=== PATIENT | male | born 1980 | race Caucasian/White ===

== ENCOUNTER 2019-09-21 15:32 | Emergency (ER) | payer SELFPAY ==
[2019-09-21] MEDS ORDERED: DEXAMETHASONE INJ 10 MG/ML VIAL IM ONE (15:58)
[2019-09-21] MEDS ORDERED: ACETAMINOPHEN 500 MG TAB PO ONE (15:58)
--- NOTE | 2019-09-21 16:01 | ED.PDOC ---
History of Present Illness - General Chief Complaint: General Stated Complaint: body aches Time Seen by Provider: 09/21/19 15:57 - History of Present Illness Initial Comments: 39 yo M no significant PMH presents to ED, girlfriend at bedside, c/o sore throat body aches cough x 1 day. Admits fever chills denies nausea vomiting diarrhea admits chest wall pain with cough denies sob diaphoresis. No change in diet rest bowel or bladder has no PMD for follow up admits smoking denies drinking admits FH HTN denies FH DM no other c/o today. Allergies/Adverse Reactions: Allergies NO KNOWN ALLERGY Allergy (Verified 11/18/15 10:04) Home Medications: Ambulatory Orders Acetaminophen [Tylenol] 650 mg PO Q6H PRN #30 tab 09/21/19 Amoxicillin & Pot Clavulanate [Augmentin Tab] 875 mg PO BID 10 Days #20 tab 09/21/19 Ibuprofen 600 mg PO Q6H PRN #20 tab 09/21/19 Oseltamivir Capsule [Tamiflu] 75 mg PO BID 5 Days #10 capsule 09/21/19 Prednisone 40 mg PO DAILY 5 Days #10 tab 09/21/19 Review of Systems - Review of Systems Constitutional: States: see HPI EENTM: States: see HPI Respiratory: States: see HPI Cardiology: States: see HPI Gastrointestinal/Abdominal: States: see HPI Genitourinary: States: see HPI Musculoskeletal: States: see HPI Skin: States: see HPI Neurological: States: see HPI Endocrine: States: see HPI Hematologic/Lymphatic: States: see HPI All other Systems: Reviewed and Negative Past Medical History (General) - Patient Medical History Hx Asthma: No Hx Cardiac Disorders: No Hx Congestive Heart Failure: No Hx Hypertension: No Hx Diabetes: No Hx MRSA: Yes - Nasal 2016 - Vaccination History Hx Tetanus, Diphtheria Vaccination: No Hx Influenza Vaccination: No Hx Pneumococcal Vaccination: No - Social History Hx Tobacco Use: Yes Hx Alcohol Use: No Hx Substance Use: Yes - pot, meth (current) Hx Physical Abuse: No Hx Emotional Abuse: No Family Medical History - Family History Father Family History: Unknown Living Status: Unknown Physical Exam - Physical Exam General Appearance: No apparent distress Eye Exam: bilateral normal Ears, Nose, Throat: pharyngeal erythema Neck: non-tender, full range of motion Respiratory: lungs clear, normal breath sounds Cardiovascular/Chest: regular rate, rhythm Gastrointestinal/Abdominal: non tender, soft Rectal Exam: deferred Back Exam: normal inspection Extremity: normal range of motion, non-tender Neurologic: no motor/sensory deficits Skin Exam: normal color Progress - Progress Progress: 09/21/19 16:01 A/P-Pharyngitis, Cough, URI, Myalgia, Fever-tylenol decadron cxr flu and strep swabs reassess, if grossly unremarkable d/c follow up pcp referral tylenol ibuprofen prednisone augmentin for the pharyngitis 09/21/19 16:25 EXAM DESCRIPTION: Chest,2 Views CLINICAL HISTORY: cough COMPARISON: None TECHNIQUE: PA/lateral FINDINGS: The lungs are well expanded and clear. No infiltrates or effusions or masses are noted. The heart is normal in size and shape with no evidence of vascular congestion. The hilton and mediastinum demonstrate normal contours. The bony spine and chest wall is normal for age in appearance. IMPRESSION: Normal chest, two views Electronically signed by: Lam Hussein MD 09/21/2019 4:18 PM COMMUNITY RELATIONS DIRECTOR EXAM DESCRIPTION: Chest,2 Views CLINICAL HISTORY: cough COMPARISON: None TECHNIQUE: PA/lateral FINDINGS: The lungs are well expanded and clear. No inf iltrates or effusions or masses are noted. The heart is normal in size and shape with no evidence of vascular congestion. The hilton and mediastinum demonstrate normal contours. The bony spine and chest wall is normal for age in appearance. IMPRESSION: Normal chest, two views Electronically signed by: Lam Hussein MD 09/21/2019 4:18 PM COMMUNITY RELATIONS DIRECTOR Laboratory Tests 09/21/19 16:05 Group A Strep Rapid Negative 09/21/19 16:29 Positive Influenza A Negative Influenza B Departure - Departure Clinical Impression: Influenza A, Cough, Myalgia Pharyngitis Qualifiers: Pharyngitis/tonsillitis etiology: unspecified etiology Qualified Code(s): J02.9 - Acute pharyngitis, unspecified Fever Qualifiers: Fever type: unspecified Qualified Code(s): R50.9 - Fever, unspecified Upper respiratory infection Qualifiers: URI type: unspecified URI Qualified Code(s): J06.9 - Acute upper respiratory infection, unspecified Time of Disposition: 16:32 Disposition: Discharge to Home or Self Care Condition: Good Departure Forms: ED Discharge - Pt. Copy, Patient Portal Self Enrollment Prescriptions: Acetaminophen [Tylenol] 650 mg PO Q6H PRN #30 tab PRN Reason: Pain Amoxicillin & Pot Clavulanate [Augmentin Tab] 875 mg PO BID 10 Days #20 tab Ibuprofen 600 mg PO Q6H PRN #20 tab PRN Reason: Pain Oseltamivir Capsule [Tamiflu] 75 mg PO BID 5 Days #10 capsule Prednisone 40 mg PO DAILY 5 Days #10 tab Home Medications: Ambulatory Orders Acetaminophen [Tylenol] 650 mg PO Q6H PRN #30 tab 09/21/19 Amoxicillin & Pot Clavulanate [Augmentin Tab] 875 mg PO BID 10 Days #20 tab 09/21/19 Ibuprofen 600 mg PO Q6H PRN #20 tab 09/21/19 Oseltamivir Capsule [Tamiflu] 75 mg PO BID 5 Days #10 capsule 09/21/19 Prednisone 40 mg PO DAILY 5 Days #10 tab 09/21/19
--- NOTE | 2019-09-21 16:19 | RAD ---
EXAM DESCRIPTION: Chest,2 Views CLINICAL HISTORY: cough COMPARISON: None TECHNIQUE: PA/lateral FINDINGS: The lungs are well expanded and clear. No infiltrates or effusions or masses are noted. The heart is normal in size and shape with no evidence of vascular congestion. The hilton and mediastinum demonstrate normal contours. The bony spine and chest wall is normal for age in appearance. IMPRESSION: Normal chest, two views Electronically signed by: Lam Hussein MD 09/21/2019 4:18 PM FINISHER MACHINE
[2019-09-21] MEDS ORDERED: IBUPROFEN 200 MG TAB PO ONE (17:03)
[2019-09-21 17:31] VITALS: O2SAT 96
[2019-09-21 17:34] VITALS: BP 142/79; TEMP 100.8
== END 2019-09-21 17:32 | disposition home or self-care (01) ==
LOC: ER 15:32
DX: J10.1 Influenza due to other identified influenza virus with other respiratory manifestations (principal); J02.9 Acute pharyngitis, unspecified; F17.200 Nicotine dependence, unspecified, uncomplicated
CPT/HCPCS: 71046; 87070; 87502; 87880; J1100